=== PATIENT | male | born 1945 | race Caucasian/White ===

== ENCOUNTER 2017-09-14 05:40 | Day surgery (SDC) | payer MEDICARE, OTHER ==
[~2017-09-14] VITALS: Ht 180.3 cm; Wt 108.9 kg
[~2017-09-14 05:40] MED LIST: AMLODIPINE10 MG OR; AMLODIPINE10 MG PO; CIPROFLOXACN500 MG PO; COLACE100 MG OR; EC ASPIRIN325 M1 OR; ECOTRIN325 MG OR; EQL ASPIRIN325 MG PO; GLUCOPHAGE1000 MG OR; GLUCOS/CHOND1 CA1 OR; GLUCOSAMINE/CHO1 TAB OR; GLYBURIDE5 M1 OR; GLYBURIDE5 MG PO; HYDROCHLOROT12.5 MG OR; HYDROCHLOROT12.5 MG PO; HYTRIN10 MG OR; LISINOPRIL20 M1 OR; LISINOPRIL20 MG PO; LORTAB5 PO; METFORMIN1000 MG PO; METOPROL TAR50 MG OR; METOPROLOL TART50 MG PO; MULTI VIT OR; MULTI VIT PO; OMEPRAZOLE20 MG OR; OMEPRAZOLE20 MG PO; PERCOCET 5/325M1 TAB OR; SIMVASTATIN40 MG OR; SIMVASTATIN40 MG PO; TERAZOSIN10 MG PO; [UNRECOGNIZED DRUG - OTHER] SC
[2017-09-14 10:07] VITALS: BP 113/60
== END 2017-09-14 10:08 | disposition home or self-care (01) ==
LOC: ENDO 05:40 → ORM 06:30 → ENDO 07:15
PROVIDERS: ATTEND Internal Medicine Gastroenterology
PROC: 0DB48ZX Excision of Esophagogastric Junction, Via Natural or Artificial Opening Endoscopic, Diagnostic (ICD-10-PCS; principal; 2017-09-14)
PROC: 0DB68ZX Excision of Stomach, Via Natural or Artificial Opening Endoscopic, Diagnostic (ICD-10-PCS; 2017-09-14)
PROC: 0DBK8ZX Excision of Ascending Colon, Via Natural or Artificial Opening Endoscopic, Diagnostic (ICD-10-PCS; 2017-09-14)
PROC: 0DBL8ZX Excision of Transverse Colon, Via Natural or Artificial Opening Endoscopic, Diagnostic (ICD-10-PCS; 2017-09-14)
DX: K21.9 Gastro-esophageal reflux disease without esophagitis (principal); Z12.11 Encounter for screening for malignant neoplasm of colon; K29.50 Unspecified chronic gastritis without bleeding; K31.7 Polyp of stomach and duodenum; K44.9 Diaphragmatic hernia without obstruction or gangrene; D12.2 Benign neoplasm of ascending colon; D12.3 Benign neoplasm of transverse colon; K57.30 Diverticulosis of large intestine without perforation or abscess without bleeding; K64.4 Residual hemorrhoidal skin tags; K64.8 Other hemorrhoids; I10 Essential (primary) hypertension; E11.9 Type 2 diabetes mellitus without complications; E78.00 Pure hypercholesterolemia, unspecified; Z86.010 Personal history of colon polyps; Z79.899 Other long term (current) drug therapy; Z87.891 Personal history of nicotine dependence

== ENCOUNTER → 2018-07-19 | Outpatient (REF) | payer MEDICARE, OTHER ==
[2018-07-19 08:55] LABS: ALBUMIN 4.7 g/dL (3.2-5.0); ALKALINE PHOSPHATASE 85 u/l (38-126); ANION GAP 15 (6-22 (CALC)); BILIRUBIN, TOTAL 0.6 mg/dL (0.0-1.4); BUN 15 mg/dL (8-23); BUN/CREATININE RATIO 14 (12-20 (CALC)); CARBON DIOXIDE 29 mmol/l (22-30); CHLORIDE 99 mmol/l (95-108); GFR > 60 ML/MIN (>=60 (CALC)); GFR FOR AFR.AMER. > 60 ML/MIN (>=60 (CALC)); POTASSIUM 4.2 mmol/l (3.5-5.1); SGOT/AST 23 u/l (19-48); SODIUM 139 mmol/l (137-146); TOTAL PROTEIN 7.1 g/dL (6.3-8.2)
[2018-07-19 09:19] LABS: TSH, 3RD GENERATION 3.59 uIU/mL (0.47 - 4.68)
== END | disposition home or self-care (01) ==
LOC: LAB 06:32
PROVIDERS: ATTEND Nurse Practitioner Family
DX: E11.65 Type 2 diabetes mellitus with hyperglycemia (principal); E78.5 Hyperlipidemia, unspecified; I10 Essential (primary) hypertension; Z12.5 Encounter for screening for malignant neoplasm of prostate